=== PATIENT | male | born 1975 | race Caucasian/White ===

== ENCOUNTER 2021-09-08 08:16 | Day surgery (SDC) | payer BC ==
[~2021-09-08] VITALS: Ht 188 cm; Wt 124.0 kg
[2021-09-08 09:02] LABS: HEMATOCRIT 48.5 % (42.0-52.0); HEMOGLOBIN 16.4 g/dl (13.5-18.0); MEAN CELL VOLUME 89 fl (80.0-100.0); MEAN CORPUSCULAR HEMOGLOBIN 30 pg (27-31); MEAN CORPUSCULAR HGB CONC 34 g/dl (33.0-37.0); MEAN PLATELET VOLUME 10.8 fl (7.4-10.4); PLATELET COUNT 191 K/mm3 (130-400); RED BLOOD COUNT 5.44 M/mm3 (4.20-5.60); REDCELL DISTRIBUTION WIDTH-CV 13.2 % (11.5-14.5)
[2021-09-08 09:09] LABS: INR 1.2 (0.8-3.0); PROTHROMBIN TIME 13.5 SECONDS (9.7-12.8)
[2021-09-08 09:12] LABS: PARTIAL THROMBOPLASTIN TIME 36.6 SECONDS (26.0-37.0)
[2021-09-08 09:19] LABS: CALCIUM 9.3 mg/dL (8.4-10.2); CREATININE, serum 0.95 mg/dL (0.72-1.25); MAGNESIUM 2.1 mg/dL (1.6-2.6); POTASSIUM 4.2 mmol/L (3.5-4.5)
[2021-09-08] MEDS ORDERED: ELIQUIS 5MG PO (09:33)
[2021-09-08] MEDS ORDERED: TOPROL XL 25MG25 MG PO (09:33)
[2021-09-08] MEDS ORDERED: MOBIC 7.5MG7.5 MG PO (09:34)
[2021-09-08 09:35] VITALS: BP 126/81; PULSE 75; TEMP 98.2
[2021-09-08] MEDS ORDERED: CRESTOR 10MG10 MG PO (09:35)
[2021-09-08] MEDS ORDERED: PROAIR HFA0.09 MG/AC IH (09:35)
[2021-09-08 09:38] LABS: THYROID STIMULATING HORMONE 4.327 uIU/mL (0.350-4.940)
[2021-09-08 10:15] VITALS: BP 101/80; PULSE 54
--- NOTE | 2021-09-08 10:15 | NUR ---
Pt care assumed from Corina LOERA. Pt resting comfortably on stretcher. repeat EKG obtained. SR/SB on monitor. pt is pwd, resp reg and unlabored. Pt is aware of poc, and denies any needs at this time. call light in reach.
[2021-09-08] MEDS ORDERED: TAMBOCOR50 MG PO (10:17)
[2021-09-08 10:30] VITALS: BP 106/89; PULSE 61
[2021-09-08 10:45] VITALS: BP 109/77; PULSE 57
[2021-09-08 11:00] VITALS: BP 112/78; PULSE 55
--- NOTE | 2021-09-08 11:25 | NUR ---
Pt has done well during his recovery. Pt remained in SB/NSR 50'S-60'S, denied any problems. I reviewed dc/rx and fu instructions with pt who verbalized understanding. Pt is steady on his feet. IV is dc'd with cath intact, dressing applied. to exit via wheelchair
== END 2021-09-08 11:30 | disposition home or self-care (01) ==
LOC: COL.CAR 08:16
PROVIDERS: Internal Medicine Adult Congenital Heart Disease
DX: I48.92 Unspecified atrial flutter (principal); I48.0 Paroxysmal atrial fibrillation; R00.2 Palpitations; J45.909 Unspecified asthma, uncomplicated; G47.33 Obstructive sleep apnea (adult) (pediatric); E78.5 Hyperlipidemia, unspecified; Z79.899 Other long term (current) drug therapy; Z87.891 Personal history of nicotine dependence; Z86.16 Personal history of COVID-19; Z79.01 Long term (current) use of anticoagulants; Z99.89 Dependence on other enabling machines and devices
CPT/HCPCS: J2704

== ENCOUNTER 2021-09-19 10:54 | Inpatient (IN) | payer BC ==
[~2021-09-19] VITALS: Ht 188 cm; Wt 114.0 kg
[~2021-09-19 10:54] MED LIST: CRESTOR 10MG10 MG PO; ELIQUIS 5MG PO; MOBIC 7.5MG7.5 MG PO; PROAIR HFA0.09 MG/AC IH; TAMBOCOR50 MG PO; TOPROL XL 25MG25 MG PO
[2021-09-19 11:37] LABS: BASO # 0.1 K/mm3 (0.0-0.2); BASO % 0.6 % (0.0-2.0); EOS # 0.1 K/mm3 (0.0-0.7); EOS % 1.1 % (0.0-4.0); GRAN # 6.7 K/mm3 (1.4-6.5); GRAN % 61.3 % (42.2-75.2); LYMPH # 3.2 K/mm3 (1.2-3.4); LYMPH % 29.3 % (20.0-51.0); MEAN CELL VOLUME 87 fl (80.0-100.0); MEAN CORPUSCULAR HGB CONC 34 g/dl (33.0-37.0); MEAN PLATELET VOLUME 10.6 fl (7.4-10.4); MONO # 0.8 K/mm3 (0.1-0.6); MONO % 7.3 % (1.7-9.3); PLATELET COUNT 301 K/mm3 (130-400); RED BLOOD COUNT 6.19 M/mm3 (4.20-5.60); REDCELL DISTRIBUTION WIDTH-CV 12.8 % (11.5-14.5)
[2021-09-19 11:38] LABS: HEMATOCRIT 53.7 % (42.0-52.0); HEMOGLOBIN 18.4 g/dl (13.5-18.0); MEAN CORPUSCULAR HEMOGLOBIN 30 pg (27-31)
[2021-09-19 11:48] LABS: INR 1.1 (0.8-3.0); PROTHROMBIN TIME 12.5 SECONDS (9.7-12.8)
[2021-09-19] MEDS ORDERED: XARELTO2.5 MG PO (11:49)
[2021-09-19 11:51] LABS: PARTIAL THROMBOPLASTIN TIME 36.2 SECONDS (26.0-37.0)
[2021-09-19 12:02] LABS: ALBUMIN 4.6 gm/dL (3.5-5.0); BILIRUBIN,TOTAL 0.8 mg/dL (0.2-1.2); CALCIUM 9.7 mg/dL (8.4-10.2); CREATININE, serum 1.4 mg/dL (0.72-1.25); POTASSIUM 5.3 mmol/L (3.5-4.5); TOTAL PROTEIN 8.3 gm/dL (6.2-8.1)
[2021-09-19 12:16] LABS: TROPONIN-I 0.069 ng/mL (0.00-0.033)
[2021-09-19 16:46] LABS: COLLECTION METHOD CLEAN CATCH
[2021-09-19 16:53] LABS: PH 5 (5-8); SQUAMOUS EPITHELIAL None Seen /hpf (0-10); URINE APPEARANCE Hazy (CLEAR/HAZY); URINE BACTERIA None Seen /hpf (NONE SEEN); URINE BILIRUBIN Negative (NEGATIVE); URINE BLOOD Negative (NEGATIVE); URINE COLOR Yellow (YELLOW); URINE GLUCOSE Negative (NEGATIVE); URINE KETONE Negative (NEGATIVE); URINE LEUKOCYTE ESTERASE Negative (NEGATIVE); URINE NITRATE Negative (NEGATIVE); URINE PROTEIN(semi-quant) Negative (NEGATIVE); URINE RBC None Seen /hpf (0-2); URINE UROBILINOGEN Negative (NEGATIVE)
[2021-09-19 16:55] LABS: POTASSIUM 4.6 mmol/L (3.5-4.5)
[2021-09-19 17:16] LABS: TROPONIN-I 0.811 ng/mL (0.00-0.033)
[2021-09-19 21:31] VITALS: BP 110/57; PULSE 56; TEMP 98
--- NOTE | 2021-09-19 22:33 | NUR ---
PATIENT ARRIVED TO ROOM 352 VIA WHEELCHAIR FROM THE ER. PATIENT ALERT AND ORIENTED X'S 4, ON ROOM AIR, AMBULATES INDEPENDENTLY, ORIENTED TO ROOM, AND CALL LIGHT IN PATIENTS HAND. NO REQUESTS OR CONCERNS REPORTED BY PATIENT AT THIS TIME OR NOTED BY THIS NURSE. PATIENT NPO AT [id number] AND PATIENT IS AWARE.
--- NOTE | 2021-09-19 22:53 | NUR ---
NOTIFIED BEBE SORIA OF PATIENTS CRITICAL TROPONIN. NO NEW ORDERS AT THIS TIME.
[2021-09-20] VITALS (10 sets, daily range): BP systolic 95–126; BP diastolic 50–80; PULSE 46–86; TEMP 97.5–98.9
--- NOTE | 2021-09-20 07:00 | NUR ---
Report received from LUZ MARIA Garcia. Pt in bed resting, doing well, denies needs, will continue to monitor.
[2021-09-20 07:25] LABS: CALCIUM 8.3 mg/dL (8.4-10.2); CREATININE, serum 0.87 mg/dL (0.72-1.25); POTASSIUM 4.5 mmol/L (3.5-4.5)
[2021-09-20 07:37] LABS: TROPONIN-I 0.842 ng/mL (0.00-0.033)
[2021-09-20 08:38] LABS: BASO % 0.4 % (0.0-2.0); EOS # 0.1 K/mm3 (0.0-0.7); EOS % 1.4 % (0.0-4.0); GRAN % 66.1 % (42.2-75.2); HEMATOCRIT 45.6 % (42.0-52.0); LYMPH # 1.9 K/mm3 (1.2-3.4); LYMPH % 24.3 % (20.0-51.0); MEAN CELL VOLUME 89 fl (80.0-100.0); MEAN CORPUSCULAR HGB CONC 34 g/dl (33.0-37.0); MEAN PLATELET VOLUME 10.8 fl (7.4-10.4); MONO # 0.6 K/mm3 (0.1-0.6); MONO % 7.5 % (1.7-9.3); RED BLOOD COUNT 5.13 M/mm3 (4.20-5.60)
[2021-09-20 08:43] LABS: MEAN CORPUSCULAR HEMOGLOBIN 30 pg (27-31)
[2021-09-20 08:44] LABS: HEMOGLOBIN 15.5 g/dl (13.5-18.0); PLATELET COUNT 188 K/mm3 (130-400)
--- NOTE | 2021-09-20 09:13 | NUR ---
Assessment charted. Dr. Glaser in room reviewed lab results, plan of care and answered questions. Pt left at this time via w/c with nuc med staff for stress test. Deneis needs, some chest wall pain from being cardioverted yesterday but otherwise denies pain. Will conitnue to monitor.
--- NOTE | 2021-09-20 10:05 | NUR ---
park worker met with patient to discuss discharge plan. Patient reports that he lives here in [place] with his Honey ([phone]). Patient is independent with his ADL's and does not utilize any DME to assist with mobility. Patient reports to having no oxygen needs at home but does have a CPAP machine that is managed through [facility]. PCP is Dr. Steiner and he utilizes [facility] for perscriptions. States some of his medications are expensive but that he does have an HSA card which helps. Is worried about the cost after this visit. Patient reports that he does have a DPOA-HC/ living will listing his . Discharge plan: Home
--- NOTE | 2021-09-20 18:31 | NUR ---
Pt has done well over shift, resting in bed, at bedside, feeling well. Removed R A/C IV stie per pt request as L A/C IV site working well. Denies needs, discussed plan of care, will give report to nightshift nurse who will resume care.
--- NOTE | 2021-09-20 22:32 | NUR ---
Patient assessed around 2119. Alert and oriented x 4, and able to make needs known. Denies pain and discomfort. Telemetry in place, SB. HR in the 40s. Called and double checked with calvin Echevarria to give Sotalol. Given per orders. Patient voices no questions, needs, or concerns at this time. In bed with call light within reach.
[2021-09-21 00:54] VITALS: BP 107/59; PULSE 51; TEMP 98.7
[2021-09-21 04:37] VITALS: BP 97/57; PULSE 49
--- NOTE | 2021-09-21 05:21 | NUR ---
Patient has voiced no questions, needs, or concerns this shift. In bed with call light within reach. Telemetry in place, showing sinus bradycardia. Call light within reach.
[2021-09-21 06:36] LABS: BASO % 0.6 % (0.0-2.0); EOS # 0.1 K/mm3 (0.0-0.7); EOS % 1.7 % (0.0-4.0); GRAN # 4.4 K/mm3 (1.4-6.5); GRAN % 62.3 % (42.2-75.2); HEMATOCRIT 42.8 % (42.0-52.0); HEMOGLOBIN 14.2 g/dl (13.5-18.0); LYMPH # 1.9 K/mm3 (1.2-3.4); MEAN CELL VOLUME 91 fl (80.0-100.0); MEAN CORPUSCULAR HEMOGLOBIN 30 pg (27-31); MEAN CORPUSCULAR HGB CONC 33 g/dl (33.0-37.0); MEAN PLATELET VOLUME 11.2 fl (7.4-10.4); MONO # 0.6 K/mm3 (0.1-0.6); MONO % 8.1 % (1.7-9.3); PLATELET COUNT 178 K/mm3 (130-400); RED BLOOD COUNT 4.69 M/mm3 (4.20-5.60)
[2021-09-21 06:47] LABS: CALCIUM 8.7 mg/dL (8.4-10.2); CREATININE, serum 0.85 mg/dL (0.72-1.25); POTASSIUM 4.2 mmol/L (3.5-4.5)
--- NOTE | 2021-09-21 07:00 | NUR ---
Report received from LUZ MARIA Ramos> PT in bed sleeping, denies needs, will continue to monitor.
[2021-09-21 07:41] VITALS: BP 97/50; PULSE 59; TEMP 98.5
--- NOTE | 2021-09-21 09:30 | NUR ---
Assessment charted . Pt feeling well, requesting to go home today, will continue to monitor.
--- NOTE | 2021-09-21 09:33 | NUR ---
Initial visit; Patient thanked Business Continuity Consultant for checking on him and offering God's blessings. Patient is feeling well and ready to plan for his 'proceedure.'
[2021-09-21] MEDS ORDERED: BETAPACE 80MG80 MG PO (09:35)
--- NOTE | 2021-09-21 11:45 | NUR ---
Discharge teaching completed at this time. Pt received discharge packet, reviewed f/u appointments, scripts. Answered all questions. INT dc'd, tip intact. Pt left with all belongings, escorted out by myself, able to drive self home, criteria met.
== END 2021-09-21 11:30 | disposition home or self-care (01) | DRG 309 ==
LOC: COL.ER 10:54 → MEDICAL 13:34 → EDBEDREQ 17:53 → MEDICAL 21:00
PROVIDERS: Emergency Medicine; Physician Assistant; ADMIT Student in an Organized Health Care Education/Training Program
PROC: 5A2204Z Restoration of Cardiac Rhythm, Single (ICD-10-PCS; principal; 2021-09-19)
DX: I48.92 Unspecified atrial flutter (principal); N17.9 Acute kidney failure, unspecified; E87.2 Acidosis; I47.2 Ventricular tachycardia; G47.33 Obstructive sleep apnea (adult) (pediatric); E78.00 Pure hypercholesterolemia, unspecified; E87.5 Hyperkalemia; I48.91 Unspecified atrial fibrillation; Z20.822 Contact with and (suspected) exposure to COVID-19; Z23 Encounter for immunization
CPT/HCPCS: 99223-AI; 99232-AI; 99239; A9500; J0282; J0610; J1815; J2250; J3010; J7030; J7060